=== PATIENT | female | born 1945 | race Caucasian/White ===

== ENCOUNTER 2017-06-18 08:19 | Observation (INO) | payer MEDICARE, BC, MEDICAID ==
--- NOTE | 2017-06-18 08:48 | EDM.PDOC ---
ED HPI GENERAL MEDICAL PROBLEM - General Chief Complaint: Neurological Problem Stated Complaint: syncope with possible seizure Time Seen by Provider: 06/18/17 08:30 Source of Information: Reports: Patient History Limitations: Reports: No Limitations - History of Present Illness INITIAL COMMENTS - FREE TEXT/NARRATIVE: Patient brought to us via EMS with report of a syncopal episode with seizure activity and unresponsiveness. She did fall forward, hitting her head. Report of convulsions after falling. Eyes looking to the back/top of head. Reports of non responsiveness for 30 minutes. She does grab at her upper right arm when repositioned. Upper left lip laceration. Monday had med changes of increased risperdal, stopage of ativan and seroquel. Medical history includes hypothyroidism, alzheimers, dementia, hyperlipidemia, depression, muscle weakness, left hip bursitis. Patient is unable to respond to HPI questions. She is non verbal, will not shake or nod head to yes/no questions. Onset: Today, Sudden Onset Date: 06/18/17 Onset Time: 07:20 Location: Reports: Head, Upper Extremity, Right - Related Data Allergies Allergy/AdvReac Type Severity Reaction Status Date / Time No Known Allergies Allergy Verified 06/18/17 08:50 Home Meds: Home Meds Acetaminophen 650 mg PO BEDTIME PRN 06/18/17 [History] Acetaminophen 650 mg PO BID 06/18/17 [History] Albuterol Sulfate 2.5 mg IH Q4H PRN 06/18/17 [History] Aspirin/Acetaminophen/Caffeine [Extra Pain Relief Caplet] 2 tab PO BID 06/18/17 [History] Bisacodyl 10 mg RC DAILY PRN 06/18/17 [History] Bisacodyl [Dulcolax] 5 mg PO DAILY PRN 06/18/17 [History] Camphor/Menthol [Sarna Lotion] 222 ml TOP BID PRN 06/18/17 [History] Cetirizine [ZyrTEC] 10 mg PO DAILY 06/18/17 [History] Cranberry Fruit Concentrate [Cranberry] 450 mg PO TID 06/18/17 [History] Famotidine [Pepcid AC] 10 mg PO BID 06/18/17 [History] Levothyroxine Sodium [Synthroid] 112 mcg PO DAILY 06/18/17 [History] Loperamide HCl [Imodium A-D] 2 mg PO ASDIRECTED PRN 06/18/17 [History] Mag Hydrox/Al Hydrox/Simeth [Maalox Maximum Strength Susp] 30 ml PO QID PRN [History] QUEtiapine Fumarate [Seroquel] 50 mg PO Q4H PRN 06/18/17 [History] Sennosides/Docusate Sodium [Senna Plus Tablet] 1 tab PO DAILY 06/18/17 [History] Triamcinolone Acetonide [Triamcinolone Acetonide 0.1% Crm] 15 gm TOP DAILY PRN 06/18/17 [History] Trolamine Salicylate/Aloe Vera [Aspercreme 10% Cream] 1 applic TOP BID PRN 06/18 [History] diphenhydrAMINE [Benadryl] 25 mg PO Q6H PRN 06/18/17 [History] risperiDONE [Risperdal] 1 mg PO BID 06/18/17 [History] ED ROS GENERAL - Review of Systems Review Of Systems: Unable To Obtain ED EXAM, NEURO - Physical Exam Exam: See Below Text/Narrative:: PLEASE USE ER HISTORY AND PHYSICAL FOR ADMISSION H AND P Exam Limited By: No Limitations General Appearance: Alert, Lethargic Eye Exam: Bilateral Eye: EOMI (does not participate), PERRL Ears: Normal TMs Throat/Mouth: Other (Patient non cooperative in opening her mouth. Left upper lip lac. will attempt to exam later). No: Normal Lips (1 cm lac to upper left lip) Head Exam: Normocephalic Respiratory/Chest: No Respiratory Distress, Lungs Clear, Normal Breath Sounds, No Accessory Muscle Use, Chest Non-Tender Cardiovascular: Normal Peripheral Pulses, Regular Rate, Rhythm, Tachycardia GI/Abdominal: Normal Bowel Sounds, Soft, Non-Tender, No Organomegaly, No Distention Neurological: Alert, Other (Patient non responsive, opens eyes spontaneously and to voice, unwilling or unable to follow commands for full neuro exam) Back Exam: Normal Inspection Extremities: Normal Capillary Refill, Limited Range of Motion (right upper arm) , Other (hip exam with flexion, rotation does not illicit pain from patient) Psychiatric: Depressed Mood, Flat Affect Skin Exam: Warm, Dry, Intact, Ecchymosis (right forearm and below left eye) ED LACERATION PROCEDURES - Laceration/Wound Repair Left Upper Mouth Lac/wound length in cm: 1 (left upper lip) Appearance: Linear Distal NVT: Neuro & Vascular Intact Anesthetic Type: Local Local Anesthesia - Lidocaine (Xylocaine): 1% Plain Local Anesthetic Volume: 1cc Exploration/Debridement/Repair: Wound Explored, In a Bloodless Field, Explored to Base, No Foreign Material Found Suture Size: other (6) Suture Type: Nylon, Interrupted Tetanus Status Addressed: No Complications: No Progress/Comments: tolerated without incident. Sterile technique used EKG INTERPRETATION EKG Date: 06/18/17 Time: 08:32 Rhythm: Other (sinus tach) Rate (Beats/Min): 112 Carbon: LAD-Left Carbon Deviation P-Wave: Present QRS: Normal ST-T: Normal QT: Normal Comparison: NA - No Prior EKG EKG Interpretation Comments: sinus tachycardia marked LAD Low qrs voltage in precordial leads moderate voltage criteria for LVH possible anterior myocardial infarction, likely old Course - Orders/Labs/Meds Orders: Active Orders 24 hr Category Date Time Status EKG Documentation Completion [RC] ROUTINE Care 06/18/17 08:30 Ordered Head wo Cont [CT] Stat Exams 06/18/17 08:30 Ordered Humerus Rt [CR] Stat Exams 06/18/17 08:30 Ordered Shoulder Comp Rt [CR] Stat Exams 06/18/17 08:30 Ordered B-TYPE NATRIURETIC PEPTIDE,BNP [CHEM] Stat Lab 06/18/17 08:30 Ordered C-REACTIVE PROTEIN [CHEM] Stat Lab 06/18/17 08:30 Ordered CBC WITH AUTO DIFF [HEME] Stat Lab 06/18/17 08:30 Ordered CK W CKMB [CHEM] Stat Lab 06/18/17 08:30 Ordered COMPREHENSIVE METABOLIC PN,CMP [CHEM] Stat Lab 06/18/17 08:30 Ordered INR,PT,PROTHROMBIN TIME [COAG] Stat Lab 06/18/17 08:30 Ordered LACTIC ACID [CHEM] Stat Lab 06/18/17 08:30 Ordered MAGNESIUM [CHEM] Stat Lab 06/18/17 08:30 Ordered TROPONIN I [CHEM] Stat Lab 06/18/17 08:30 Ordered TSH ULTRASENSITIVE [CHEM] Stat Lab 06/18/17 08:30 Ordered UA W/MICROSCOPIC [URIN] Stat Lab 06/18/17 08:30 Uncollected - Radiology Interpretation Free Text/Narrative:: CT head shows no acute process X-ray of shoulder and humerus of right arm negative Favoring right hand as well, since she is non verbal, will get x-ray of that X-ray of hand reviewed, no fractures identified - Re-Assessments/Exams Free Text/Narrative Re-Assessment/Exam: 06/18/17 10:[address] English regarding patient. She and I agree that a transfer would not be required due to 1 seizure. Review of medications would be more appropriate. She did have recent increase in risperdal, stopped her ativan and seroquel. She will be admitted observation. Departure - Departure Time of Disposition: 10:56 Disposition: Refer to Observation Condition: Good Clinical Impression: Seizure, Syncope - Discharge Information - Problem List & Annotations (1) Seizure SNOMED Code(s): 51484754 Code(s): R56.9 - UNSPECIFIED CONVULSIONS Status: Acute Priority: Low Current Visit: Yes (2) Syncope SNOMED Code(s): 045022648 Code(s): R55 - SYNCOPE AND COLLAPSE Status: Acute Priority: Low Current Visit: Yes Qualifiers: Syncope type: unspecified Qualified Code(s): R55 - Syncope and collapse - Problem List Review Problem List Initiated/Reviewed/Updated: Yes - My Orders Last 24 Hours: My Active Orders 06/18/17 08:30 EKG Documentation Completion [RC] ROUTINE Head wo Cont [CT] Stat Humerus Rt [CR] Stat Shoulder Comp Rt [CR] Stat B-TYPE NATRIURETIC PEPTIDE,BNP [CHEM] Stat C-REACTIVE PROTEIN [CHEM] Stat CBC WITH AUTO DIFF [HEME] Stat CK W CKMB [CHEM] Stat COMPREHENSIVE METABOLIC PN,CMP [CHEM] Stat INR,PT,PROTHROMBIN TIME [COAG] Stat LACTIC ACID [CHEM] Stat MAGNESIUM [CHEM] Stat TROPONIN I [CHEM] Stat TSH ULTRASENSITIVE [CHEM] Stat UA W/MICROSCOPIC [URIN] Stat - Assessment/Plan Last 24 Hours: My Active Orders 06/18/17 08:30 EKG Documentation Completion [RC] ROUTINE Head wo Cont [CT] Stat Humerus Rt [CR] Stat Shoulder Comp Rt [CR] Stat B-TYPE NATRIURETIC PEPTIDE,BNP [CHEM] Stat C-REACTIVE PROTEIN [CHEM] Stat CBC WITH AUTO DIFF [HEME] Stat CK W CKMB [CHEM] Stat COMPREHENSIVE METABOLIC PN,CMP [CHEM] Stat INR,PT,PROTHROMBIN TIME [COAG] Stat LACTIC ACID [CHEM] Stat MAGNESIUM [CHEM] Stat TROPONIN I [CHEM] Stat TSH ULTRASENSITIVE [CHEM] Stat UA W/MICROSCOPIC [URIN] Stat Plan: admit for observation Pain control Monitor for additional seizure activity Monitor for additional syncope Hydration
[2017-06-18 09:34] LABS: CHLORIDE,CL 105 mmol/L (98-107); SODIUM,NA 140 mmol/L (136-145)
[2017-06-18] MEDS ORDERED: Morphine 2 MG/ML Syringe IVPUSH ONE (10:17)
[2017-06-18] MEDS: Sodium Chloride 0.9% 1,000 ML IV SCH ×2 (10:27→20:52)
[2017-06-18] MEDS ORDERED: SIMETH PO PRN (13:45)
[2017-06-18] MEDS ORDERED: diphenhydrAMINE 25 MG Cap PO SCH (13:45)
[2017-06-18] MEDS ORDERED: TROLAMINE SALICYLATE TP PRN (13:45)
[2017-06-18] MEDS ORDERED: Bisacodyl 5 MG Tab PO PRN (13:45)
[2017-06-18] MEDS ORDERED: Triamcinolone Acetonide 0.1% Crm 15 GM Tube TOP PRN (13:45)
[2017-06-18] MEDS ORDERED: [UNRECOGNIZED DRUG - OTHER] PO PRN (13:45)
[2017-06-18] MEDS ORDERED: Camphor/Menthol 0.5-0.5% Lotion 222 ML Bottle PRN (13:45)
[2017-06-18] MEDS ORDERED: AL HYDROX PO PRN (13:45)
[2017-06-18] MEDS ORDERED: Albuterol 0.083% 2.5 MG/3 ML Neb Soln INH PRN (13:45)
[2017-06-18] MEDS ORDERED: Non-Formulary Medication 1 Each (Loperamide Hcl [Imodium A-D] 2 MG) PO PRN (13:45)
[2017-06-18] MEDS ORDERED: QUETIAPINE FUMARATE 50 MG PO PRN (13:45)
[2017-06-18] MEDS ORDERED: MAG HYDROX PO PRN (13:45)
[2017-06-18] MEDS ORDERED: ALOE VERA TP PRN (13:45)
[2017-06-18] MEDS: Morphine 2 MG/ML Syringe IVPUSH PRN ×2 (14:06→21:06)
[2017-06-18] MEDS: diphenhydrAMINE 25 MG Cap PO SCH (17:45)
[2017-06-18] MEDS: risperiDONE 1 MG Tab PO SCH (20:50)
[2017-06-18] MEDS: Non-Formulary Medication 1 Each (Cranberry Fruit Concentrate [Cranberry] 450 MG) PO SCH (20:50)
[2017-06-18] MEDS: FAMOTIDINE 10 MG PO SCH (20:57)
[2017-06-19] MEDS: diphenhydrAMINE 25 MG Cap PO SCH ×3 (01:17→11:31)
[2017-06-19] MEDS: Sodium Chloride 0.9% 1,000 ML IV SCH (06:10)
[2017-06-19] MEDS ORDERED: Levothyroxine 112 MCG Tab PO SCH (07:00)
[2017-06-19] MEDS: Non-Formulary Medication 1 Each (Cranberry Fruit Concentrate [Cranberry] 450 MG) PO SCH ×2 (08:23→11:31)
[2017-06-19] MEDS: risperiDONE 1 MG Tab PO SCH (08:23)
[2017-06-19] MEDS: FAMOTIDINE 10 MG PO SCH (08:23)
[2017-06-19 10:32] VITALS: BP 167/87
--- NOTE | 2017-06-19 11:13 | PCM.DCSUM1 ---
Discharge Summary - Hospital Course Brief History: Patient admitted observation after a syncopal episode and possible seizure activity. She did fall, did hit her head and did have a laceration on her left upper lip. Reported 30 minute loss of consciousness and non responsiveness. Post ictal on arrival to the ED. Sutures to lip. - Discharge Data Discharge Date: 06/19/17 Discharge Disposition: Home, Self-Care 01 Condition: Good - Discharge Diagnosis/Problem(s) (1) Seizure SNOMED Code(s): 95148346 ICD Code: R56.9 - UNSPECIFIED CONVULSIONS Status: Acute Priority: Low Current Visit: Yes (2) Syncope SNOMED Code(s): 720370047 ICD Code: R55 - SYNCOPE AND COLLAPSE Status: Acute Priority: Low Current Visit: Yes Qualifiers: Syncope type: unspecified Qualified Code(s): R55 - Syncope and collapse - Patient Summary/Data Recommended Follow-up Testing/Procedures: Follow up with Dr. English this week to address medication changes. Remove sutures in 7-10 days Stay hydrated, get assistance with ambulation as needed. Follow up with neurology may be indicated. Discuss this with your primary provider. Please call with any questions or concerns. - Patient Instructions Diet: Usual Diet as Tolerated Activity: As Tolerated Showering/Bathing: May Shower - Discharge Plan Home Medications: Home Meds Acetaminophen 650 mg PO BEDTIME PRN 06/18/17 [History] Acetaminophen 650 mg PO BID 06/18/17 [History] Albuterol Sulfate 2.5 mg IH Q4H PRN 06/18/17 [History] Aspirin/Acetaminophen/Caffeine [Extra Pain Relief Caplet] 2 tab PO BID 06/18/17 [History] Bisacodyl 10 mg RC DAILY PRN 06/18/17 [History] Bisacodyl [Dulcolax] 5 mg PO DAILY PRN 06/18/17 [History] Camphor/Menthol [Sarna Lotion] 222 ml TOP BID PRN 06/18/17 [History] Cetirizine [ZyrTEC] 10 mg PO DAILY 06/18/17 [History] Cranberry Fruit Concentrate [Cranberry] 450 mg PO TID 06/18/17 [History] Famotidine [Pepcid AC] 10 mg PO BID 06/18/17 [History] Levothyroxine Sodium [Synthroid] 112 mcg PO DAILY 06/18/17 [History] Loperamide HCl [Imodium A-D] 2 mg PO ASDIRECTED PRN 06/18/17 [History] Mag Hydrox/Al Hydrox/Simeth [Maalox Maximum Strength Susp] 30 ml PO QID PRN [History] QUEtiapine Fumarate [Seroquel] 50 mg PO Q4H PRN 06/18/17 [History] Sennosides/Docusate Sodium [Senna Plus Tablet] 1 tab PO DAILY 06/18/17 [History] Triamcinolone Acetonide [Triamcinolone Acetonide 0.1% Crm] 15 gm TOP DAILY PRN 06/18/17 [History] Trolamine Salicylate/Aloe Vera [Aspercreme 10% Cream] 1 applic TOP BID PRN 06/18 [History] diphenhydrAMINE [Benadryl] 25 mg PO Q6H PRN 06/18/17 [History] risperiDONE [Risperdal] 1 mg PO BID 06/18/17 [History] Forms: ED Department Discharge Referrals: Helena English DO [Primary Care Provider] - 06/22/17 11:00 am (You have a follow-up appt. with Dr. Chad English on June 22, [address] [facility]) - Discharge Summary/Plan Comment DC Time >30 min.: Yes - General Info Date of Service: 06/19/17 Admission Dx/Problem (Free Text: Patient admitted for syncope with fall and seizure like activity yesterday. Functional Status: Reports: Ambulating - Review of Systems General: Reports: Other (Patient is non responsive to questions for HPI/ROS) - Patient Data Vitals - Most Recent: Last Vital Signs Temp 36.8 C 06/19/17 10:00 Pulse 82 06/19/17 10:00 Resp 16 06/19/17 10:00 BP 167/87 H 06/19/17 10:00 Pulse Ox 97 06/19/17 10:00 Weight - Most Recent: 83.007 kg I&O - Last 24 hours: Intake & Output 06/18/17 06/19/17 06/19/17 22:59 06:59 14:59 Intake Total 713 1146 Balance 713 1146 SMOOTH Results - Last 24 hrs: Microbiology 06/18/17 11:10 MRSA Surveillance Culture - Final Nasal, Left NO MRSA ISOLATED Med Orders - Current: Current Medications Albuterol (Proventil Neb Soln) 2.5 mg INH Q4H PRN PRN Reason: Shortness of Breath Bisacodyl (Dulcolax) 5 mg PO DAILY PRN PRN Reason: Constipation Camphor/Menthol (Sarna Lotion) 222 ml .XX ASDIRECTED PRN PRN Reason: Itching Diphenhydramine HCl (Benadryl) 25 mg PO Q6H [facility] Last Admin: 06/19/17 06:09 Dose: 25 mg Sodium Chloride (Normal Saline) 1,000 mls @ 100 mls/hr IV ASDIRECTED [facility] Last Admin: 06/19/17 06:10 Dose: 100 mls/hr Levothyroxine Sodium (Levothyroxine) 112 mcg PO DAILY@0700 [facility] Last Admin: 06/19/17 06:09 Dose: 112 mcg Morphine Sulfate (Morphine) 2 mg IVPUSH Q2H PRN PRN Reason: Pain Last Admin: 06/18/17 21:06 Dose: 2 mg Non-Formulary Medication (Cetirizine [Zyrtec]) 10 mg PO DAILY [facility] Last Admin: 06/19/17 08:24 Dose: Not Given Non-Formulary Medication (Cranberry Fruit Concentrate [Cranberry]) 450 mg PO TID [facility] Last Admin: 06/19/17 08:23 Dose: Not Given Non-Formulary Medication (Famotidine [Pepcid Ac]) 10 mg PO BID [facility] Last Admin: 06/19/17 08:23 Dose: Not Given Non-Formulary Medication (Loperamide Hcl [Imodium A-D]) 2 mg PO ASDIRECTED PRN PRN Reason: Diarrhea Non-Formulary Medication (Mag Hydrox/Al Hydrox/Simeth [Maalox Maximum Strength Susp]) 30 ml PO QID PRN PRN Reason: Abdominal Pain Non-Formulary Medication (Quetiapine Fumarate) 50 mg PO Q4H PRN PRN Reason: Agitation Non-Formulary Medication (Trolamine Salicylate/Aloe Vera) 85 gm TP ASDIRECTED PRN PRN Reason: Itching Risperidone (Risperidal) 1 mg PO BID [facility] Last Admin: 08/21/17 08:23 Dose: 1 mg Senna/Docusate Sodium (Senna Plus) 1 tab PO DAILY [facility] Last Admin: 06/19/17 08:23 Dose: 1 tab Triamcinolone Acetonide (Triamcinolone Acetonide 0.1% Crm) 15 gm TOP DAILY PRN PRN Reason: Itching Discontinued Medications Diphenhydramine HCl (Benadryl) 25 mg PO Q6H [facility] Last Admin: 06/18/17 14:38 Dose: Not Given Lidocaine HCl (Xylocaine-Mpf 1%) 5 ml INJECT ONETIME ONE Stop: 06/18/17 10:18 Last Admin: 06/18/17 10:27 Dose: 5 ml Morphine Sulfate (Morphine) 2 mg IVPUSH ONETIME ONE Stop: 06/18/17 10:18 Last Admin: 06/18/17 10:26 Dose: 2 mg - Exam General: Reports: Other (no cooperative for assessment) HEENT: Reports: Pupils Equal, Pupils Reactive Lungs: Reports: Clear to Auscultation, Normal Respiratory Effort Cardiovascular: Reports: Regular Rate, Regular Rhythm GI/Abdominal Exam: Normal Bowel Sounds, Soft, Non-Tender, No Organomegaly Extremities: Normal Inspection, Pedal Edema Skin: Reports: Warm, Dry, Intact Wound/Incisions: Reports: Healing Well, No Drainage Neurological: Reports: No New Focal Deficit Physical Findings Comments:: Patient had no additional seizure activity during the day or night. No syncopal episodes or falls. *Q Meaningful Use (DIS) - VTE *Q VTE Criteria *Q: - Stroke *Q Stroke Criteria *Q: - AMI *Q AMI Criteria *Q:
== END 2017-06-19 13:30 | disposition home or self-care (01) ==
LOC: VM.ED 08:19 → VM.MS 10:16
PROVIDERS: ADMIT Nurse Practitioner Family; ATTEND Nurse Practitioner Family
DX: R56.9 Unspecified convulsions (principal); R55 Syncope and collapse; S01.511A Laceration without foreign body of lip, initial encounter; Z79.82 Long term (current) use of aspirin; Z79.899 Other long term (current) drug therapy
CPT/HCPCS: 12011; 36415; 70450; 73030; 73060; 73120; 80053; 81001; 82550; 82553; 83605; 83735; 83880; 84443; 84484; 85025; 85610; 86140; 93005; 96361; 96374; 96376; 99217; 99220; 99285; A9270; G0378; J2270; J7030